=== PATIENT | female | born 1935 | race Caucasian/White ===

== ENCOUNTER 2018-08-17 12:47 | Outpatient (CLI) | payer MEDICARE ==
--- NOTE | 2018-08-17 15:55 | MRI ---
MRI BRAIN WITH AND WITHOUT CONTRAST: 08/17/2018 COMPARISON: None. HISTORY: Metastatic melanoma. Clinical concern for intraaxial metastatic disease. TECHNIQUE: Multiplanar, multisequence MR imaging of the brain is obtained with and without contrast. FINDINGS: The patient appears status post extensive postoperative resection involving the right mastoid air trino ls, right ear, subcutaneous fat, and calvarium in this region, posteriorly, on the right. Residual mastoid air cells on the right are opacified. The imaged paranasal sinuses/mastoid air cells appear grossly unremarkable otherwise. Diffusion-weighted imaging demonstrates no evidence for acute infarction. There is a focus of blooming artifact within the inferior medial aspect of the right frontal lobe. T here is a lesion in this region, which measures approximately 1.1 cm in AP dimension. This lesion is heterogeneous on T2-weighted imaging and demonstrates pre-contrast T1 hyperintensity. There is mi nimal adjacent vasogenic edema. There is a second intraaxial lesion of similar signal characteristics within the posterior aspect of the left temporal lobe, laterally, on the left, measur ing approximately 1.9 cm in greatest dimension. There is adjacent vasogenic edema. There is minimal peripheral enhancement along the anterior aspect of the inferior right frontal lesion. There is significant enhancement involving the left temporal lesion. Findings are most consistent with 2 intraaxial metastatic lesions, likely hemorrhagic in nature. The precontrast T1 hyperintensity may signify a degree of melanin, in addition to hemorrhage. There is moderate diffuse cerebral volume loss with associated prominence of the CSF containing spaces. There is a third enhancing lesion near the vertex, on the right, within the right frontal lobe, measu ring 6 mm. There are no enhancing lesions involving the brainstem or posterior fossa/cerebellum. IMPRESSION: 1. Multiple intraaxial lesions, highly suspicious for intracranial metastatic disease. 2. Arterial flow voids at the axial level of the skull base appear grossly unremarkable on the T2-we ighted imaging. Transcribed Date/Time: 08/17/2018 4:28 PM
== END 2018-08-17 12:48 | disposition home or self-care (01) ==
LOC: MRI 12:47
PROVIDERS: ATTEND Radiology Radiation Oncology
DX: C43.9 Malignant melanoma of skin, unspecified (principal); M89.8X8 Other specified disorders of bone, other site
CPT/HCPCS: 70553; 82565

== ENCOUNTER 2019-01-11 09:34 | Outpatient (CLI) | payer MEDICARE ==
--- NOTE | 2019-01-11 10:50 | MRI ---
MRI BRAIN WITH AND WITHOUT CONTRAST: 01/11/2019 12:00 a.m. CLINICAL HISTORY: Melanoma. COMPARISON: 08/17/2018 FINDINGS: Extra axial spaces: Stable in volume. Acute infarction: None. Ventricular system: Stable in appearance. Basal cisterns: No significant effacement. Cerebral parenchyma: Residual increased intrinsic T1 signal with barajas artifact of the left temporal lobe does remain, although smaller in volume and there is mild residual enhancement, correlating to residual, although smaller metastatic lesion related to patient's history of melanoma. Enhancing focu s is approximately 1 cm x 7 mm, compared to intrinsic T1 hyperintensity of 8 x 4 mm. Previous subcentimeter lesion at the medial right frontal convexity is not discretely visualized. There is minimal, 4 mm enhancing residua of the previous inferior right frontal lesion, demonstrating interval decrease in size. 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 Microvascular ischemic disease of the cerebral white matter is mild in degree. Midline shift: None. Cerebellum: No acute process. Brainstem: Unremarkable. Paranasal sinuses:Scattered paranasal sinus mucosal thickening. Bilateral mastoid opacification. Evidence of postoperative resection of the right base of skull and overlying right facial/neck soft t issues. IMPRESSION: Interval size reduction of metastatic melanotic lesions of the left temporal lobe and inferior right frontal lobe, as above. No significant residua from prior lesion at the high right frontal convexity. Transcribed Date/Time: 01/11/2019 11:28 AM
== END 2019-01-11 09:35 | disposition home or self-care (01) ==
LOC: MRI 09:34
PROVIDERS: ATTEND Radiology Radiation Oncology
DX: C79.31 Secondary malignant neoplasm of brain (principal); C43.9 Malignant melanoma of skin, unspecified
CPT/HCPCS: 70553

== ENCOUNTER 2019-04-13 09:45 | Outpatient (CLI) | payer MEDICARE ==
--- NOTE | 2019-04-13 11:14 | MRI ---
BRAIN MRI WITH AND WITHOUT CONTRAST: HISTORY: Melanoma, with brain metastases. Status post radiosurgery. COMPARISON: 01/21/2019, 08/17/2018. FINDINGS: Gradient echo sequence: No acute hemorrhage. Hemosiderin deposition/posttreatment change in the left temporal lobe. Calvarium: Appropriate T1 marrow signal intensity. Evidence of previous resection along the right tem poral bone. Midline brain parenchyma: Unremarkable. Cerebrum:Hemosiderin deposition along the periphery of a previously noted intraaxial metastatic focus in the left temporal lobe. There is residual central T2 and FLAIR hyperintensity. This lesion has decreased in size, currently measuring 1.1 cm mediolateral by 0.9 cm anterior posterior. Previously, this lesion measured 1.2 x 1.4 cm on the FLAIR sequence. There are additional T2 and FLAIR white matter hyperintensities, compatible with chronic small vessel ischemic change. Ventricles: No evidence of hydrocephalus. Sinuses and mastoid air cells: Persistent opacification of the mastoid air cells, right greater than left. Bilateral ethmoidal mucosal thickening is noted. Diffusion: Central arterial flow is maintained. Absent restricted diffusion. Postcontrast images:Persistent noted enhancing focus in the left temporal lobe is no longer evident. There does not appear to be any intraparenchymal enhancement. There is stable leptomeningeal enhancement. IMPRESSION: 1. Evidence for response to therapy. There is no evidence of an enhancing mass, intraaxial in locatio n. 2. Stable postsurgical change involving the right temporal bone. 2. Stable opacification of bilateral mastoid air cells. Stable leptomeningeal enhancement. Transcribed Date/Time: 04/13/2019 11:35 AM
[2019-04-13] MEDS ORDERED: Magnevist 469MG/ML 20 ML VIAL ONE (14:57)
== END 2019-04-13 09:46 | disposition home or self-care (01) ==
LOC: MRI 09:45
PROVIDERS: ATTEND Radiology Radiation Oncology
DX: C79.31 Secondary malignant neoplasm of brain (principal); Z98.890 Other specified postprocedural states
CPT/HCPCS: 70553; 82565; A9579

== ENCOUNTER 2019-08-19 11:26 | Outpatient (CLI) | payer MEDICARE ==
[2019-08-19] MEDS ORDERED: Magnevist 469MG/ML 20 ML VIAL ONE (13:20)
--- NOTE | 2019-08-19 15:27 | MRI ---
MRI OF BRAIN WITH AND WITHOUT CONTRAST: 08/19/19 INDICATIONS: Melanoma with brain mets. Post radiation. Restaging. COMPARISON: Comparison made to MRI of brain of 04/13/19. FINDINGS: Moderate cortical atrophy again noted. Ventricles have normal size and position and are stable. Moder ately severe chronic ischemic white matter changes in both cerebral hemispheres again noted, stable. Focal FLAIR signal consistent with gliosis at the site of the left temporal lobe lesion is again note d and is stable in appearance. Hemosiderin deposition at this site is unchanged in appearance. There is no enhancement at this site. There is no enhancement or gliosis seen at the site of previously jose cribed lesions in the inferior right temporal lobe and the superior right temporal lobe which were de scribed on 08/17/18. No restricted diffusion. Vascular enhancement seen involving the parasagittal cortex of the right par ietal lobe with the largest draining vein is stable and is consistent with a developmental venous ano isamar. T2 signal in the mastoid air cells is stable. Cerebral vessels show expected flow voids. Dural venous sinuses are patent. IMPRESSION: Stable MRI findings when compared to 04/13/19. POS: AGW
== END 2019-08-19 11:27 | disposition home or self-care (01) ==
LOC: MRI 11:26
PROVIDERS: ATTEND Radiology Radiation Oncology
DX: C79.31 Secondary malignant neoplasm of brain (principal); C80.1 Malignant (primary) neoplasm, unspecified
CPT/HCPCS: 70553; 82565; A9579

== ENCOUNTER 2020-01-26 09:47 | Outpatient (CLI) | payer MEDICARE ==
[~2020-01-26 09:47] MED LIST: Magnevist 469MG/ML 20 ML VIAL ONE
--- NOTE | 2020-01-26 11:18 | MRI ---
Exam: Brain MRI with and without contrast HISTORY: Restaging. Melanoma. Brain metastases. COMPARISON: 08/19/2019, to 06/28/2019, 08/17/2018 FINDINGS: Gradient echo sequence: Stable hemosiderin deposition in the left temporal lobe, corresponding to pos t treatment change. Calvarium: Appropriate T1 marrow signal intensity Midline brain parenchyma: Unremarkable Cerebrum:Stable T2 and FLAIR hyperintensity involving the left temporal lobe, corresponding to a prev iously known metastatic deposit. Cysts changes of signal intensity of the brain parenchyma is presumed to be due to post treatment change. There is no evidence of mass effect or midline shift. Co nfluent T2 and FLAIR white matter hyperintensities due to chronic small vessel ischemic change. Ventricles: No evidence of hydrocephalus. Sinuses and mastoid air cells: Partial opacification of left mastoid air cells. Additional findings: Postsurgical changes involving the right neck with resection. Stable postsurgical changes in the right mastoid air cells. Diffusion: Central arterial flow is maintained. Absent restricted diffusion. Postcontrast images: No pathologic enhancement of the brain parenchyma. IMPRESSION: 1. Posttreatment change left temporal lobe. 2. Posttreatment change of the right neck. 3. No abnormal enhancement. No evidence of residual or recurrent intracranial metastases.
== END 2020-01-26 09:48 | disposition home or self-care (01) ==
LOC: BICMRI 09:47
PROVIDERS: ATTEND Radiology Radiation Oncology
DX: C79.31 Secondary malignant neoplasm of brain (principal); C43.9 Malignant melanoma of skin, unspecified
CPT/HCPCS: 70553; 82565; A9579